=== PATIENT | male | born 1990 | race Two or more races ===

== ENCOUNTER 2020-06-05 17:50 | Emergency (ER) | payer OTHER ==
[~2020-06-05] VITALS: Ht 177.8 cm; Wt 90.9 kg
[2020-06-05 20:32] VITALS: BP 117/65
== END 2020-06-05 20:42 | disposition home or self-care (01) ==
LOC: EMS 17:50
DX: S51.831A Puncture wound without foreign body of right forearm, initial encounter (principal); F12.90 Cannabis use, unspecified, uncomplicated; W45.8XXA Other foreign body or object entering through skin, initial encounter; Y93.89 Activity, other specified; Y92.89 Other specified places as the place of occurrence of the external cause; Y99.8 Other external cause status
CPT/HCPCS: 99283